=== PATIENT | female | born 1965 | race Caucasian/White ===

== ENCOUNTER 2016-11-01 13:24 | Emergency (ER) | payer BC, OTHER ==
[~2016-11-01] VITALS: Ht 157.5 cm; Wt 79.5 kg
[~2016-11-01 13:24] MED LIST: ALPR0.5T PO; FLUO40CA10 PO; ZOLP10TA PO
[2016-11-01 13:38] VITALS: Ht 157.5 cm; Wt 79.5 kg
--- NOTE | 2016-11-01 17:21 | EN ---
Date/Time of Note Date/Time of Note DATE: 11/01/16 TIME: 17:18 ER Progress Note I evaluated this patient on a rapid medical assessment. This is a 50-year-old female with past medical history of bipolar and depression states she has not taken her psychiatric medications in 3 years. She states "I know what is good for me and I do not need them." She currently adamantly denies any suicidal or homicidal ideation. She denies visual or auditory hallucinations. The patient' s sister spoke to me privately in the hallway telling me the patient has been talking to herself every day and has been sent home from work because she is combative and angry. The patient has been admitted to [facility] in the past for psychiatric issues. Currently the patient states "I just want to go home" and she seems to be unreasonably laughing at questions that I ask her. The patient's significant other and her sister seem reasonably worried about the patient's mental health condition currently. I currently do not feel that the patient poses a threat to herself or others, however I do believe she would benefit from psychiatric evaluation to determine her further treatment and prognosis. ALEXANDER CR PA-C Nov 01, 2016 17:21
[2016-11-01] MEDS ORDERED: ALPR0.5T PO (17:45)
--- NOTE | 2016-11-01 17:46 | EN ---
Date/Time of Note Date/Time of Note DATE: 11/01/16 TIME: 17:45 ER Progress Note Care was turned over to supervising physician, Dr. Mellisa Lewis, at approximately 1730 for further evaluation and treatment if necessary. ALEXANDER CR PA-C Nov 01, 2016 17:46
[2016-11-01] MEDS ORDERED: ALPRAZOLAM 0.25 MG TAB PO ONE (18:00)
--- NOTE | 2016-11-01 18:19 | ERD ---
ER Documentation Chief Complaint Date/Time DATE: 11/01/16 TIME: 18:17 Chief Complaint anxious, stressed at work, insomnia HPI This is a 50-year-old female here for anxiety. She says she is having undue stress at work with multiple difficult people at her job that are stressing her out. She is not homicidal suicidal or feels unsafe. The patient says that when she gets very stressed out her adrenaline starts to run in her mind races. She says she is being disrespected at work and treated poorly. She is here because she feels overly stressed ROS All systems reviewed and are negative except as per history of present illness. Medications Home Meds Active Scripts Alprazolam* (Xanax*) 0.5 Mg Tab, 0.5 MG PO Q8H Y for ANXIETY, #20 TAB Prov:ANGMILANAMISHAAldair MontoyaTomasz DO 11/01/16 Reported Medications Zolpidem Tartrate* (Ambien*) 10 Mg Tablet, 10 MG PO 08/21/12 Alprazolam* (Xanax*) 0.5 Mg Tab, 0.5 MG PO 08/21/12 Fluoxetine Hcl* (Prozac*) 40 Mg Capsule, 40 MG PO DAILY 08/21/12 Allergies Allergies: Coded Allergies: No Known Allergy (Unverified , 09/27/12) PMhx/Soc History of Surgery: No Anesthesia Reaction: No Hx Neurological Disorder: No Hx Respiratory Disorders: No Hx Cardiac Disorders: No Hx Miscellaneous Medical Probl: No Hx Alcohol Use: No Hx Substance Use: No Hx Tobacco Use: No Smoking Status: Never smoker FmHx Family History: No coronary disease Physical Exam Vitals Vital Signs Date Time Temp Pulse Resp B/P Pulse Ox O2 Delivery O2 Flow Rate FiO2 11/01/16 13:38 99.8 106 20 163/82 96 Physical Exam Const: [Well-developed, well-nourished] Head: [Atraumatic, normocephalic] Eyes: [Normal Conjunctiva, PERRLA, EOMI, normal sclera, no nystagmus] ENT: [Normal External Ears, Nose and Mouth, moist mucus membranes.] Neck: [Full range of motion. No meningismus, no lymphadenopathy.] Resp: [Clear to auscultation bilaterally, no wheezing, rhonchi, rales] Cardio: [Regular rate and rhythm, no murmurs, S1 S2 present] Abd: [Soft, non tender x 4, non distended. Normal bowel sounds, no guarding or rebound, no pulsitile abdominal masses or bruits] Skin: [No petechiae or rashes, no ecchymosis , no maculopapular rash] Back: [No midline or flank tenderness] Ext: [No cyanosis, or edema, FROM x 4, normal inspection, neurovascularly intact x 4] Neur: [Awake and alert, STR 5/5 x 4, sensation intact x 4, no focal findings, cerebellum intact] Psych: Anxious Results 24 hrs Current Medications Medications (Trade) Dose Ordered Sig/Michell Route PRN Reason Start Time Stop Time Status Last Admin Dose Admin Alprazolam (Xanax) 0.5 mg ONCE ONCE PO 11/01/16 18:00 11/01/16 18:01 DC Departure Diagnosis: Primary Impression: Anxiety Condition: Stable Patient Instructions: Anxiety Reaction Referrals: JOÃO FLOWERS (PCP) ABBI FRY DO Nov 01, 2016 18:19
[2016-11-01 18:53] VITALS: BP 128/71; PULSE 86; RESP 18
== END 2016-11-01 18:53 | disposition home or self-care (01) ==
LOC: FTE 13:24 → E/R 18:53
DX: F41.9 Anxiety disorder, unspecified (principal)
CPT/HCPCS: 99283

== ENCOUNTER 2016-12-11 03:24 | Emergency (ER) | END 2016-12-11 23:55 | DX: F29 Unspecified psychosis not due to a substance or known physiological condition (principal); N30.00 Acute cystitis without hematuria | CPT/HCPCS: 36415; 80053; 80306; 80307; 81001; 85025; 96372; J2060; Z7502; Z7610 ==